=== PATIENT | male | born 1945 | race Caucasian/White ===

== ENCOUNTER → 2021-06-09 09:42 | Outpatient (BNVA) | payer MEDICARE, BC, SELFPAY | PROVIDERS: Family Provider Nurse Practitioner Family; PCP Nurse Practitioner Family; Visit Provider Urology | DX: N52.9 Male erectile dysfunction, unspecified (principal) | CPT/HCPCS: 81003 ==

== ENCOUNTER 2021-12-09 21:17 | Emergency (ER) | payer MEDICARE, BC, SELFPAY ==
--- NOTE | 2021-12-09 21:29 | ECG_ITS ---
[facility] Test Date: 2021-12-09 Pat Name: Efe Nazario Department: Room: Gender: Male Home Maker: : 1945 Requested By: Andrew Palacios Order Number: [id number] Richy MD: Joaquin Roach M.D. Measurements Intervals [place] Rate: 65 P: 61 NV: 189 QRS: 36 QRSD: 106 T: 50 QT: 370 QTc: 387 Interpretive Statements SINUS RHYTHM LOW QRS VOLTAGE IN PRECORDIAL LEADS [QRS DEFLECTION < 1.0 mV IN CHEST LEADS] No previous ECG available for comparison Electronically Signed On 12-10-2021 14:22:30 CDT by Joaquin Roach M.D. [id number]
[2021-12-09 21:34] VITALS: BMI 30.5
[2021-12-09 21:40] VITALS: BP 160/68; PULSE 68; RESP 15; TEMP 37.1; O2SAT 98
== END 2021-12-10 00:39 | disposition left against medical advice (07) ==
PROVIDERS: Emergency Provider Family Medicine; PCP Nurse Practitioner Family
DX: Z53.21 Procedure and treatment not carried out due to patient leaving prior to being seen by health care provider (principal)
CPT/HCPCS: 93005; 99283